=== PATIENT | male | born 1980 | race Caucasian/White ===

== ENCOUNTER 2019-12-25 05:29 | Emergency (ER) | payer OTHER ==
[~2019-12-25] VITALS: Ht 182.9 cm; Wt 90.7 kg
[2019-12-25] MEDS ORDERED: LISINOPRIL2.5 MG PO (05:38)
[2019-12-25] MEDS ORDERED: TRAMADOL 50 MG50 MG PO (05:38)
[2019-12-25] MEDS ORDERED: ZANAFLEX2 M1 PO (05:38)
[2019-12-25] MEDS ORDERED: LORCET 5-325 M1 EACH PO (06:34)
[2019-12-25] MEDS ORDERED: MEDROL DOSPAK21 TA1 PO (06:34)
[2019-12-25 06:45] VITALS: BP 112/67
== END 2019-12-25 06:45 | disposition home or self-care (01) ==
LOC: M.ERS 05:29
DX: M54.16 Radiculopathy, lumbar region (principal); G89.29 Other chronic pain; F17.210 Nicotine dependence, cigarettes, uncomplicated